=== PATIENT | female | born 1990 | race Caucasian/White ===

== ENCOUNTER 2017-05-26 09:49 | Outpatient (CLI) | payer BC ==
--- NOTE | 2017-05-26 12:19 | MRI ---
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 COMPARISON: 02-16-16, 12-16-14 TECHNIQUE: Multiple sequences obtained in axial, sagittal, and coronal planes; pre and post IV injection of gado linium-based contrast agent: 10 ml of MultiHance FINDINGS: Right temporoparietal old craniotomy changes, deep to which there is a moderately large region of rig ht lateral temporal lobe encephalomalacia and gliosis, with architectural distortion, and ex vacuo di lation of the trigone and temporal horn of the right lateral ventricle. The periventricular gliosis a round the right occipital lobe encroaches upon the right occipital lobe. There is no obstructive hydr ocephalus. No recent intraaxial hemorrhage. No restricted diffusion. The mild enhancement pattern in the parenchyma of the region of encephalomalacia and gliosis is stable since 12-16-14, consistent with post-surgical scar. No mass effect or midline shift. No significant interval change overall. IMPRESSION: 1. Post-surgical changes of the right temporal lobe and adjacent right parietal lobe, with severe enc ephalomalacia and gliosis, and what appears to be enhancing scar tissue. 2. No significant interval change compared to 02-16-16 and 12-16-14. No convincing evidence of recurre nt or residual neoplasm. SUNITA Daniels POS: BOGDAN
== END 2017-05-26 09:50 | disposition home or self-care (01) ==
LOC: MRI 09:49
PROVIDERS: ATTEND Internal Medicine Hematology & Oncology
DX: C71.2 Malignant neoplasm of temporal lobe (principal); Z98.890 Other specified postprocedural states
CPT/HCPCS: 70553

== ENCOUNTER 2018-05-26 09:15 | Outpatient (CLI) | payer BC ==
[2018-05-26] MEDS ORDERED: Gadobenate Dimeglumine 529 MG/1 ML (20ML VIAL) ONE (10:13)
--- NOTE | 2018-05-26 12:45 | MRI ---
MRI BRAIN WITH AND WITHOUT CONTRAST: 05/26/2018 HISTORY: Malignant neoplasm of the temporal lobe. The patient reports a history of prior chemotherapy and rad iation, as well as multiple prior surgical resections. COMPARISON: 05/26/2017 and prior. This study is compared to numerous prior brain MRI examinations. TECHNIQUE: Multiplanar, multisequence MR imaging of the brain obtained with and without contrast. FINDINGS: The diffusion-weighted imaging demonstrates no evidence for acute infarction. There is mild mucosal thickening involving the alveolar recesses of the bilateral maxillary sinuses a nd the anterior ethmoid air cells on the right. A postoperative resection cavity is noted within the lateral posterior aspect of the right temporal l obe. The configuration of the postoperative cavity and associated encephalomalacia of the adjacent t emporal lobe appears unchanged on FLAIR imaging, when compared to the 05/26/2017 examination. There is adjacent FLAIR hyperintensity involving the regional white matter of the postoperative site, exten ding to the periventricular region, adjacent to the posterior horn/atrium of the right lateral ventri haven, stable. There is no midline shift. No mass effect is noted. The configuration of the ventricular system is unchanged when compared to the 2018 exam. The axial gradient echo imaging demonstrates no evidence for acute intracranial hemorrhage. There are a few opacified mastoid air cells on the left. Arterial flow voids at the axial level of the skull base appear unremarkable on the T2 weight imaging . Within the postoperative resection cavity, there is a linear area of enhancement along the superior-p osterior margin, unchanged when compared to the 05/26/2017 examination. In this area of stable postop erative enhancement, along its lateral margin, there is subtle nodularity, which measures 5 mm in tra nsverse dimension on coronal imaging and 5 mm in craniocaudal dimension on sagittal imaging. This is a stable finding. No additional area of enhancement is identified on post contrast imaging. In additional, this area of postoperative enhancement is unchanged when compared to numerous prior st udies. IMPRESSION: Stable postoperative changes on the right, consistent with prior tumor resection of right temporal lo be. There is no magnetic resonance evidence for recurrent or residual neoplasm. POS: BOGDAN
== END 2018-05-26 09:16 | disposition home or self-care (01) ==
LOC: BICMRI 09:15
PROVIDERS: ATTEND Internal Medicine Hematology & Oncology
DX: C71.2 Malignant neoplasm of temporal lobe (principal); Z98.890 Other specified postprocedural states
CPT/HCPCS: 70553; A9577

== ENCOUNTER 2019-12-27 08:36 | Outpatient (CLI) | payer BC ==
--- NOTE | 2019-12-27 09:55 | MRI ---
MRI BRAIN WITH AND WITHOUT CONTRAST: DATE: 12/27/2019 HISTORY: 29-year-old female with ICD-10: "C 71.2 malignant neoplasm of temporal lobe. Follow-up R 51. Headache s. " COMPARISON: 05/26/2017, 05/26/2018, and 12/16/2014. TECHNIQUE: Multiplanar, multisequence MRI of the brain performed pre- and post-IV injection of gadolinium based contrast agent. FINDINGS: Right temporoparietal old craniotomy changes, deep to which there is a moderately large region of rig ht lateral temporal lobe encephalomalacia and gliosis, with architectural distortion, and ex vacuo dilation of the trigone and temporal horn of the right lateral ventricle. The periventricular gliosis around the trigone of the right lateral ventricle encroaches upon the right occipital lobe. There is no obstructive hydrocephalus. No recent intraaxial hemorrhage. No restricted diffusion. The mild e nhancement pattern in the parenchyma of the region of encephalomalacia and gliosis is stable since 12-16-14, consistent with post-surgical scar. No mass effect or midline shift. No significant interval change overall. IMPRESSION: 1. Post-surgical changes of the right temporal lobe and adjacent right parietal lobe, with severe enc ephalomalacia and gliosis, with enhancing scar tissue. 2. No significant interval change since 12/16/2014. No convincing evidence of residual or recurrent ne oplasm.
== END 2019-12-27 08:37 | disposition home or self-care (01) ==
LOC: TBSIIMAG 08:36
PROVIDERS: ATTEND Internal Medicine Hematology & Oncology
DX: C71.2 Malignant neoplasm of temporal lobe (principal); R51 Headache; G93.89 Other specified disorders of brain; L90.5 Scar conditions and fibrosis of skin; Z98.890 Other specified postprocedural states
CPT/HCPCS: 70553

== ENCOUNTER 2022-07-16 11:29 | Outpatient (CLI) | payer BC | END 2022-07-16 11:30 | disposition home or self-care (01) | LOC: SCSMRI 11:29 | PROVIDERS: ATTEND Internal Medicine Hematology & Oncology | DX: C71.2 Malignant neoplasm of temporal lobe (principal) | CPT/HCPCS: 70553 ==

== ENCOUNTER 2023-07-15 11:31 | Outpatient (CLI) | payer BC | END 2023-07-15 11:32 | disposition home or self-care (01) | LOC: SCSMRI 11:31 | PROVIDERS: ATTEND Internal Medicine Hematology & Oncology | DX: C71.2 Malignant neoplasm of temporal lobe (principal); Z98.890 Other specified postprocedural states | CPT/HCPCS: 70553 ==